=== PATIENT | male | born 1990 | race Two or more races ===

== ENCOUNTER 2018-09-26 09:53 | Emergency (ER) | payer OTHER ==
[2018-09-26 10:11] VITALS: BMI 41.5
[2018-09-26] MEDS ORDERED: predniSONE 20 MG TABLET (UD) PO ONE (10:57)
[2018-09-26] MEDS ORDERED: predniSONE 20 MG TABLET (UD) ONE (11:01)
--- NOTE | 2018-09-26 11:06 | PDOC ---
History of Present Illness - General Chief Complaint: Allergic Reaction Stated Complaint: ALLERGIC REACTION Time Seen by Provider: 09/26/18 10:12 - History of Present Illness Initial Comments: 09/26/18 11:07 The patient is a 27 year old male, with no significant past medical history, who presents to the emergency department with R facial droop. He states at 10PM last night he noticed the right side of his face felt tight and swollen. He states he took benadryl last night, thinking it was an allergic reaction, without relief. He denies taking new medications or eating new foods. Pt denies any weakness in his arms or legs, no numbness. He denies experiencing these symptoms in the past. No family history of CVA. The patient denies chest pain, shortness of breath, headache and dizziness. The patient denies fever, chills, nausea, vomit, diarrhea and constipation. The patient denies dysuria, frequency, urgency and hematuria. Allergies: NKDA Past surgical history: none reported Social history: 3 year e-cigarette PCP - Dr. Yu Past History - Past Medical History Allergies/Adverse Reactions: Allergies Allergy/AdvReac Type Severity Reaction Status Date / Time No Known Allergies Allergy Verified 09/26/18 10:06 Home Medications: Ambulatory Orders Prednisone [Deltasone] 60 mg PO DAILY 7 Days #21 tablet 09/26/18 - Immunization History Immunization Up to Date: Yes - Suicide/Smoking/Psychosocial Hx Smoking Status: No Smoking History: Unknown if ever smoked Have you smoked in the past 12 months: No Number of Cigarettes Smoked Daily: 5 Hx Alcohol Use: No Drug/Substance Use Hx: No Substance Use Type: None Review of Systems - Review of Systems Comments:: 09/26/18 11:07 "GENERAL/CONSTITUTIONAL: No fever or chills. No weakness. HEAD, EYES, EARS, NOSE AND THROAT: No change in vision. No ear pain or discharge. No sore throat. CARDIOVASCULAR: No chest pain, no shortness of breath, no loss of consciousness RESPIRATORY: No cough, wheezing, or hemoptysis. GASTROINTESTINAL: No nausea, vomiting, diarrhea or constipation. GENITOURINARY: No dysuria, frequency, or change in urination. MUSCULOSKELETAL: No joint or muscle swelling or pain. No neck or back pain. SKIN: No rash NEUROLOGIC: + R facial droop, No vertigo, no change in strength/sensation. ENDOCRINE: No increased thirst. No abnormal weight change. HEMATOLOGIC/LYMPHATIC: No anemia, easy bleeding, or history of blood clots. ALLERGIC/IMMUNOLOGIC: No hives or skin allergy. *Physical Exam - Vital Signs Last Vital Signs Temp Pulse Resp BP Pulse Ox 98.2 F 100 H 18 120/70 98 09/26/18 10:09 09/26/18 10:09 09/26/18 10:09 09/26/18 10:09 09/26/18 10:09 - Physical Exam Comments: 09/26/18 11:06 "GENERAL: Awake, alert, and fully oriented, in no acute distress. HEAD: No signs of trauma EYES: PERRLA, EOMI, sclera anicteric, conjunctiva clear ENT: Auricles normal inspection, hearing grossly normal, nares patent, oropharynx clear without exudates. Moist mucosa NECK: Nontender, no stepoffs, Normal ROM, supple, no lymphadenopathy, JVD, or masses LUNGS: Breath sounds equal, clear to auscultation bilaterally. No wheezes, and no crackles HEART: Regular rate and rhythm, normal S1 and S2, no murmurs, rubs or gallops ABDOMEN: Soft, nontender, normoactive bowel sounds. No guarding, no rebound. No masses EXTREMITIES: Normal range of motion, no edema. No clubbing or cyanosis. No cords, erythema, or tenderness NEUROLOGICAL: + R facial droop with NO sparing of forehead, 5/5 strength and sensation in all extremities, Normal speech, normal gait, normal cerebellar function SKIN: Warm, Dry, normal turgor, no rashes or lesions noted. Moderate Sedation - Procedure Monitoring Vital Signs: Procedure Monitoring Vital Signs Temperature 98.2 F 09/26/18 10:09 Pulse Rate 100 H 09/26/18 10:09 Respiratory Rate 18 09/26/18 10:09 Blood Pressure 120/70 09/26/18 10:09 O2 Sat by Pulse Oximetry (%) 98 09/26/18 10:09 Medical Decision Making - Medical Decision Making 09/26/18 11:01 27 M with R facial droop since last night. 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 Pt with no h/o tick bites. No other neuro deficits to suggest CVA. - Prednisone - Neuro f/u Repeat HR 76. Pt is well appearing, with normal vitals. Clinically stable for DC at this time. I discussed the physical exam findings, ancillary test results and final diagnoses with the patient. I answered all of the patient's questions. The patient was satisfied with the care received and felt comfortable with the discharge plan and treatment plan. The patient agrees to follow up with the primary care physician within 24-72 hours. *DC/Admit/Observation/Transfer Diagnosis at time of Disposition: Guillaume's palsy - Discharge Dispostion Disposition: HOME - Prescriptions Prescriptions: Prednisone [Deltasone] 60 mg PO DAILY 7 Days #21 tablet - Referrals Referrals: Gail Alejandra MD [Primary Care Provider] - Primitivo Geiger DO [Staff Physician] - - Patient Instructions Printed Discharge Instructions: DI for Guillaume's Palsy Additional Instructions: Your facial droop is likely due to a condition called Guillaume's Palsy. Take the prednisone once daily to treat it. If you experience any new numbness or weakness in your arm or leg, slurred speech, or any other concerning symptoms, return to the ER immediately. Otherwise, follow up with a neurologist within 1-2 weeks. Call the number provided to make an appointment. - Post Discharge Activity - Attestations Physician Attestion: 09/26/18 11:01 I, Dr. Félix Acuña MD, attest that this document has been prepared under my direction and personally reviewed by me in its entirety. I further attest, that it accurately reflects all work, treatment, procedures and medical decision -making performed by me.
[2018-09-26 11:16] VITALS: BP 143/60; PULSE 76; TEMP 98
== END 2018-09-26 11:20 | disposition home or self-care (01) ==
LOC: JER 09:53
DX: G51.0 Bell's palsy (principal)
CPT/HCPCS: 99282-25